=== PATIENT | female | born 1995 | race Caucasian/White ===

== ENCOUNTER 2020-06-01 10:57 | Outpatient (REF) | payer MEDICAID, SELFPAY ==
[2020-06-01 13:56] LABS: Syphilis Screen Nonreactive (Nonreactive)
[2020-06-02 12:01] LABS: BV Int Neg Control Negative (Negative); BV Int Pos Control Positive (Positive)
[2020-06-03 03:51] LABS: C. trachomatis RNA TMA NOT DETECTED (NOT DETECTED); N. gonorrhoeae RNA TMA NOT DETECTED (NOT DETECTED)
[2020-06-04 04:23] LABS: HBc Num1 0.06 S/CO (0.00-0.79); HIV AB/AG Nonreactive (Nonreactive); HIV Num 1 0.06 S/CO (0.00-0.99); Hepatitis B Core Antibody Nonreactive (Nonreactive)
[2020-06-04 04:27] LABS: ~HepC Num1 0.05 S/CO (0.00-0.79); ~Hepatitis C Antibody Nonreactive (Nonreactive)
== END 2020-06-01 10:58 | disposition home or self-care (01) ==
LOC: HO.LAB 10:57
PROVIDERS: Visit Provider Advanced Practice Midwife
DX: Z01.419 Encounter for gynecological examination (general) (routine) without abnormal findings (principal); Z20.2 Contact with and (suspected) exposure to infections with a predominantly sexual mode of transmission; E66.9 Obesity, unspecified; J45.909 Unspecified asthma, uncomplicated; F17.210 Nicotine dependence, cigarettes, uncomplicated; Z91.013 Allergy to seafood; Z86.19 Personal history of other infectious and parasitic diseases
CPT/HCPCS: 36415; 86704; 86780; 86803; 87389; 87480; 87491; 87510; 87591; 87660

== ENCOUNTER → 2020-10-09 15:40 | Outpatient (BNVA) | payer MEDICAID, SELFPAY | PROVIDERS: Visit Provider Advanced Practice Midwife ==

== ENCOUNTER → 2020-10-23 15:54 | Outpatient (BNVA) | payer MEDICAID, SELFPAY | PROVIDERS: Visit Provider Advanced Practice Midwife ==

== ENCOUNTER 2021-04-18 14:01 | Outpatient (REF) | payer MEDICAID, SELFPAY ==
[2021-04-19 08:57] LABS: BV Int Neg Control Negative (Negative); BV Int Pos Control Positive (Positive)
[2021-04-19 10:53] LABS: CT PCR NOT DETECTED (Not Detect.); NG PCR NOT DETECTED (Not Detect.)
== END 2021-04-18 14:02 | disposition home or self-care (01) ==
LOC: HO.LAB 14:01
PROVIDERS: Visit Provider Advanced Practice Midwife
DX: Z01.419 Encounter for gynecological examination (general) (routine) without abnormal findings (principal); R10.2 Pelvic and perineal pain; E66.01 Morbid (severe) obesity due to excess calories; F17.210 Nicotine dependence, cigarettes, uncomplicated; Z87.42 Personal history of other diseases of the female genital tract; Z98.891 History of uterine scar from previous surgery; Z20.2 Contact with and (suspected) exposure to infections with a predominantly sexual mode of transmission; Z79.899 Other long term (current) drug therapy
CPT/HCPCS: 81025; 87086; 87480; 87491; 87510; 87591; 87660; 99212

== ENCOUNTER 2021-05-09 10:46 | Outpatient (REF) | payer MEDICAID, SELFPAY ==
--- NOTE | ~2021-05-09 | US_ITS ---
EXAMINATION: US PELVIC AND TRANSVAGINAL CLINICAL INFORMATION: Pelvic and perineal pain. COMPARISON: None TECHNIQUE: Ultrasound of the pelvis is performed using both transabdominal and transvaginal transducers along with Doppler. Transvaginal imaging is performed due to inadequate visualization transabdominally. FINDINGS: Uterus: The uterus is 8.7 x 3.7 x 4.8 cm for a volume of 83.1 mL. The double wall endometrial thickness is 0.6 mm. The uterus is smooth in contour and has normal myometrial echogenicity. No visible fibroid. Adnexa: Both ovaries are visualized. There is normal color flow to the adnexa. There is no ovarian torsion. There is no pelvic ascites or fluid collection. Right ovary measures 3.8 x 2.4 x 2.6 cm. Multiple normal follicles are seen, the largest 1 cm. Left ovary measures 3.5 x 3.2 x 2.2 cm. Multiple small follicles are noted. US/US pelvic and transvaginal IMPRESSION: Normal pelvic ultrasound.
== END 2021-05-09 10:47 | disposition home or self-care (01) ==
LOC: HO.US 10:46
PROVIDERS: Visit Provider Advanced Practice Midwife
DX: R10.2 Pelvic and perineal pain (principal)
CPT/HCPCS: 76830; 76856

== ENCOUNTER → 2021-05-10 15:00 | Outpatient (BNVA) | payer MEDICAID, SELFPAY | PROVIDERS: Visit Provider Advanced Practice Midwife ==

== ENCOUNTER 2021-06-07 09:26 | Outpatient (REF) | payer MEDICAID, SELFPAY ==
[2021-06-08 13:08] LABS: BV Int Neg Control Negative (Negative); BV Int Pos Control Positive (Positive)
[2021-06-08 14:30] LABS: CT PCR NOT DETECTED (Not Detect.); NG PCR NOT DETECTED (Not Detect.)
== END 2021-06-07 09:27 | disposition home or self-care (01) ==
LOC: HO.LAB 09:26
PROVIDERS: PCP Family Medicine; Visit Provider Advanced Practice Midwife
DX: Z01.419 Encounter for gynecological examination (general) (routine) without abnormal findings (principal); R10.32 Left lower quadrant pain; R10.2 Pelvic and perineal pain; Z86.19 Personal history of other infectious and parasitic diseases; Z20.2 Contact with and (suspected) exposure to infections with a predominantly sexual mode of transmission
CPT/HCPCS: 87480; 87491; 87510; 87591; 87660; 88142

== ENCOUNTER 2022-06-24 10:14 | Outpatient (REF) | payer MEDICAID, SELFPAY ==
[2022-06-24 17:42] LABS: CT PCR NOT DETECTED (Not Detect.); NG PCR NOT DETECTED (Not Detect.)
[2022-06-25 09:28] LABS: BV Int Neg Control Negative (Negative); BV Int Pos Control Positive (Positive)
== END 2022-06-24 10:15 | disposition home or self-care (01) ==
LOC: HO.LAB 10:14
PROVIDERS: PCP Family Medicine; Visit Provider Advanced Practice Midwife
DX: N89.8 Other specified noninflammatory disorders of vagina (principal); Z20.2 Contact with and (suspected) exposure to infections with a predominantly sexual mode of transmission
CPT/HCPCS: 0353U; 87480; 87510; 87660

== ENCOUNTER 2022-06-24 10:44 | Outpatient (REF) | payer MEDICAID, SELFPAY | END 2022-06-24 10:45 | disposition home or self-care (01) | LOC: HO.LNP 10:44 | PROVIDERS: Visit Provider Advanced Practice Midwife | DX: Z13.89 Encounter for screening for other disorder (principal) ==

== ENCOUNTER 2022-07-31 08:13 | Outpatient (REF) | payer OTHER, SELFPAY ==
[2022-08-01 10:48] LABS: BV Int Neg Control Negative (Negative); BV Int Pos Control Positive (Positive)
== END 2022-07-31 08:14 | disposition home or self-care (01) ==
LOC: HO.LAB 08:13
PROVIDERS: PCP Family Medicine; Visit Provider Advanced Practice Midwife
DX: N89.8 Other specified noninflammatory disorders of vagina (principal)
CPT/HCPCS: 87480; 87510; 87660; 99212

== ENCOUNTER 2022-09-18 08:27 | Outpatient (REF) | payer MEDICAID, SELFPAY ==
[2022-09-19 13:44] LABS: BV Int Neg Control Negative (Negative)
[2022-09-19 13:45] LABS: BV Int Pos Control Positive (Positive)
== END 2022-09-18 08:28 | disposition home or self-care (01) ==
LOC: HO.LAB 08:27
PROVIDERS: PCP Family Medicine; Visit Provider Advanced Practice Midwife
DX: N89.8 Other specified noninflammatory disorders of vagina (principal)
CPT/HCPCS: 87480; 87510; 87660; 99212

== ENCOUNTER 2022-10-13 10:31 | Outpatient (REF) | payer MEDICAID, SELFPAY ==
--- NOTE | ~2022-10-13 | US_ITS ---
EXAMINATION: US OBSTETRICAL ULTRASOUND CLINICAL INFORMATION: Hemorrhage in early . LMP 09/03/2022. COMPARISON: 05/09/2021 LMP: 09/03/2022. Gestational age by maternal dates is 5 weeks 5 days. Estimated date of delivery by maternal dates is 06/10/2023. TECHNIQUE: Transabdominal and endovaginal imaging was performed. FINDINGS: There is a single intrauterine gestational sac with visible yolk sac, embryo/fetus, and cardiac activity. There is no significant subchorionic hemorrhage or hematoma. HR: 105 beats per minute. CRL (crown rump length): 0.16 cm. Could not be calculated. JANNY (estimated date of delivery): Could not be calculated. MATERNAL ADNEXA: The right maternal ovary measures 5.3 x 2.6 x 2.6 cm. Corpus luteal cyst measures 2.4 x 2.1 x 2.3 cm. The left maternal ovary measures 3.4 x 1.4 x 2.2 cm. There is no significant maternal adnexal mass. No maternal pelvic ascites. US/US OB pelvic and transvaginal IMPRESSION: Single viable intrauterine gestation. Continued sonographic surveillance is advised.
== END 2022-10-13 10:32 | disposition home or self-care (01) ==
LOC: HO.US 10:31
PROVIDERS: PCP Family Medicine; Visit Provider Obstetrics & Gynecology
DX: O20.9 Hemorrhage in early pregnancy, unspecified (principal)
CPT/HCPCS: 36415; 76801; 76817; 84702; 99212

== ENCOUNTER 2022-10-13 11:44 | Outpatient (AMB) | payer MEDICAID, SELFPAY ==
[2022-10-13 11:52] VITALS: BP 104/66; BMI 39.0
--- NOTE | 2022-10-13 11:52 | MHC.OFFVIS ---
Intake Vital Signs 10/13/22 11:52 Height 5 ft 3 in Weight 220 lb BMI 39.0 BP 104/66 Intake Visit Reasons: Vag Bleeding Sap Data Analyst Required: No Information Interpreted: non-clinical & clinical Feller Machine Operator: Feller Machine Operator Present (Belinda) Allergies shellfish derived [SHELLFISH DERIVED] Allergy (Unknown, Verified 10/13/22 11:53) ITCHING cats and dogs Allergy (Unknown, Uncoded 10/13/22 11:53) rash polypropylene suture Allergy (Unknown, Uncoded 10/13/22 11:53) Blister seasonal Allergy (Unknown, Uncoded 10/13/22 11:53) Itching SEASONAL ALLERGIES Allergy (Unknown, Uncoded 10/13/22 11:53) ITCHING shellfish Allergy (Unknown, Uncoded 10/13/22 11:53) rash Is last menstrual period known: Yes Last menstrual period: 09/02/22 Post menopausal: No HPI HPI Comments History of Present Illness Details Presenting at the 6 weeks of gestation by LMP 09/03/2022 complaining of vaginal spotting and cramping. HCG done today is still pending, blood type B positive. OB ultrasound showed the following: LMP: 09/03/2022. Gestational age by maternal dates is 5 weeks 5 days. Estimated date of delivery by maternal dates is 06/10/2023. TECHNIQUE: Transabdominal and endovaginal imaging was performed. ? FINDINGS: There is a single intrauterine gestational sac with visible yolk sac, embryo/fetus, and cardiac activity.? There is no significant subchorionic hemorrhage or hematoma. HR:? 105 beats per minute. CRL (crown rump length): ? 0.16 cm. Could not be calculated. JANNY (estimated date of delivery): Could not be calculated. MATERNAL ADNEXA: ? ? The right maternal ovary measures 5.3 x 2.6 x 2.6 cm.? Corpus luteal cyst measures 2.4 x 2.1 x 2.3 cm. The left maternal ovary measures 3.4 x 1.4 x 2.2 cm. There is no significant maternal adnexal mass.? No maternal pelvic ascites. [facility] Medical History Asthma Hx of herpes simplex type 2 infection Obesity (BMI 30-39.9) Surgical History Hx of section Hx of cholecystectomy Hx of tonsillectomy Family History Father Diabetes mellitus HTN (hypertension) CVD (cardiovascular disease) FH: mental illness Mother FH: mental illness Paternal Grandfather CVD (cardiovascular disease) Paternal Aunt Breast cancer Family/Other Breast cancer Social History Alcohol intake: current Alcohol intake frequency: holidays/special occasions only Patient Tobacco Use Status: Current everyday Tobacco user Cigarette Packs Per Day: 1 Cigarettes Per Day: 20 Years Smoked: 15 Sexual orientation: Straight/Heterosexual Gender identity: Female Female Reproductive History Menstrual Age of Menarche: 10 Duration of menses: 3-5 days Date of last menstrual period: 09/02/22 control method: none Date of last pap smear: 06/10/21 Review of Systems Const All systems reviewed & are unremarkable except as noted in HPI and below Physical Exam Vital Signs: Last Vital Signs BP 104/66 10/13/22 11:52 BMI result Body Mass Index 39.0 General: Yes no CVA tenderness External Female Exam: normal external appearance and normal appearance of the urethra Speculum Exam - Vagina: normal appearance of the vagina, normal palpation, no lesions and no masses Speculum Exam - Cervix: normal appearance of the cervix, normal palpation, no lesions, no masses and nontender Bimanual exam- vagina & uterus: normal bimanual exam, normal palpation, uterine size normal, normal palpation, uterine shape normal, No Cervical tenderness present and non-tender Bimanual Exam- Adnexa, other: normal adnexae Back/Spine/Pelvis Back: no CVA tenderness Assessment & Plan Assessment & Plan (1) First trimester bleeding: Code(s): O20.9 - Hemorrhage in early , unspecified Plan: GC and chlamydia taken. Discussed with the patient the finding on ultrasound showing a live intrauterine , CRL and gestational sacs are to to be measured. Repeat ultrasound in 2 weeks SAB warnings given to patient, she is to call or go to the emergency room in case of worsening /persistence of cramping and or bleeding. vitamin 1 tablet p.o. q.d. instructions given the patient to schedule a follow-up appointment 2 weeks. All questions answered, the patient verbalized understanding Orders: Orders US OB <= 14 weeks fetus Today O20.9 - Hemorrhage in early , unspecified Coding Level of Care Code Est Pt Level 3 (02814) Diagnoses First trimester bleeding O20.9
== END 2022-10-13 13:08 | disposition home or self-care (01) ==
LOC: HO.HWS 11:44
PROVIDERS: PCP Family Medicine; Visit Provider Obstetrics & Gynecology
DX: O20.9 Hemorrhage in early pregnancy, unspecified (principal)
CPT/HCPCS: 99213

== ENCOUNTER 2022-10-13 15:13 | Outpatient (REF) | payer MEDICAID, SELFPAY ==
[2022-10-13 18:25] LABS: CT PCR NOT DETECTED (Not Detect.); NG PCR NOT DETECTED (Not Detect.)
== END 2022-10-13 15:14 | disposition home or self-care (01) ==
LOC: HO.LNP 15:13
PROVIDERS: Visit Provider Obstetrics & Gynecology
DX: O20.9 Hemorrhage in early pregnancy, unspecified (principal)
CPT/HCPCS: 0353U

== ENCOUNTER 2022-10-21 10:13 | Outpatient (AMB) | payer MEDICAID, SELFPAY ==
[2022-10-21 10:25] VITALS: BP 110/66; BMI 39.0
--- NOTE | 2022-10-21 10:25 | A.OFFVIS_ITS ---
Intake Vital Signs 10/21/22 10:25 Height 5 ft 3 in Weight 220 lb BMI 39.0 BP 110/66 Intake Visit Reasons: consult/30 Intake Note: LMP 09/03/22 EDC 06/10/23 6w6d The patient agreed to use of a durable medical equipment technician during this encounter. Scribed for ZAIN Dee by Gme Randle, durable medical equipment technician, on 10/21/2022 Allergies cats and dogs Allergy (Unknown, Uncoded 10/21/22 10:26) rash polypropylene suture Allergy (Unknown, Uncoded 10/21/22 10:26) Blister seasonal Allergy (Unknown, Uncoded 10/21/22 10:26) Itching shellfish Allergy (Unknown, Uncoded 10/21/22 10:26) rash Is last menstrual period known: Yes Last menstrual period: 09/03/22 HPI HPI Comments History of Present Illness Details She is here for consult. Had early first trimester bleeding and workup. She has a follow up US on 10/26/22. . C/S x 2, plans repeat C/S. This is my last baby . Reports VB a week ago, fatigue and nausea. Slight bleeding after transvaginal probe, no bleeding since. LMP 09/03/22 EDC 06/10/23 6w6d. Taking PNV, hydrating well and is able to eat. Declines B6 vitamins. . PFSH Medical History Asthma Hx of herpes simplex type 2 infection Obesity (BMI 30-39.9) Positive test Surgical History Hx of section Hx of cholecystectomy Hx of tonsillectomy Family History Father Diabetes mellitus HTN (hypertension) CVD (cardiovascular disease) FH: mental illness Mother FH: mental illness Paternal Grandfather CVD (cardiovascular disease) Paternal Aunt Breast cancer Family/Other Breast cancer Social History Alcohol intake: current Alcohol intake frequency: holidays/special occasions only Patient Tobacco Use Status: Current everyday Tobacco user Cigarette Packs Per Day: 1 Cigarettes Per Day: 20 Years Smoked: 15 Sexual orientation: Straight/Heterosexual Gender identity: Female Female Reproductive History Menstrual Age of Menarche: 10 Date of last menstrual period: 09/03/22 Total pregnancies: 5 Full term: 1 Premature: 2 Number of Living Children: 3 Ab spontaneous: 1 Multiple births: 1 Physical Exam Vital Signs: Last Vital Signs BP 110/66 10/21/22 10:25 BMI result Body Mass Index 39.0 Const General: cooperative, healthy appearing, comfortable, no acute distress, well developed, alert and awake Results Reviewed Results Reviewed: EXAMINATION:?05/09/21 US PELVIC AND TRANSVAGINAL CLINICAL INFORMATION:? Pelvic and perineal pain. COMPARISON: None TECHNIQUE: Ultrasound of the pelvis is performed using both transabdominal and transvaginal transducers along with Doppler. Transvaginal imaging is performed due to inadequate visualization transabdominally. FINDINGS: Uterus: The uterus is 8.7 x 3.7 x 4.8 cm for a volume of 83.1 mL. The double wall endometrial thickness is 0.6 mm.? The uterus is smooth in contour and has normal myometrial echogenicity. No visible fibroid. Adnexa: Both ovaries are visualized. There is normal color flow to the adnexa. There is no ovarian torsion. There is no pelvic ascites or fluid collection. Right ovary measures 3.8 x 2.4 x 2.6 cm. Multiple normal follicles are seen, the largest 1 cm. Left ovary measures 3.5 x 3.2 x 2.2 cm. Multiple small follicles are noted. US/US pelvic and transvaginal IMPRESSION: Normal pelvic ultrasound. Assessment & Plan Assessment & Plan (1) Positive test: Code(s): Z32.01 - Encounter for test, result positive Plan: Discussed: Options for prenantal care with birthing unit closure. Considering tubal ligation with Rc/s. Continue PNV. Advised to eat small frequent meals and stay cool and hydrated. Transition to [facility] for care to establish care to plan for Rc/s. Reviewed when to call for any VB. Call the service here for any emergencies/deliveries to be directed to [facility]. Keep follow up US. Call if needing Rx for B6 in the future. All of her questions and concerns were addressed to the best of my ability and shared decision making. She is agreeable to plan of care. (2) First trimester bleeding: Code(s): O20.9 - Hemorrhage in early , unspecified Coding Level of Care Code Est Pt Level 3 (69393) Diagnoses Positive test Z32.01 First trimester bleeding O20.9
== END 2022-10-21 10:44 | disposition home or self-care (01) ==
LOC: HO.HWS 10:13
PROVIDERS: PCP Family Medicine; Visit Provider Advanced Practice Midwife
DX: Z32.01 Encounter for pregnancy test, result positive (principal); O20.9 Hemorrhage in early pregnancy, unspecified
CPT/HCPCS: 99213

== ENCOUNTER → 2022-10-21 10:13 | Outpatient (BNVA) | payer MEDICAID, SELFPAY | PROVIDERS: PCP Family Medicine; Visit Provider Advanced Practice Midwife | DX: O20.9 Hemorrhage in early pregnancy, unspecified (principal); Z3A.00 Weeks of gestation of pregnancy not specified | CPT/HCPCS: 99212 ==

== ENCOUNTER 2022-10-27 10:53 | Outpatient (REF) | payer MEDICAID, SELFPAY ==
--- NOTE | ~2022-10-27 | US_ITS ---
EXAMINATION: US OBSTETRICAL ULTRASOUND CLINICAL INFORMATION: Hemorrhage in early . COMPARISON: Pelvic ultrasound dated 10/13/2022. LMP: 09/03/2022. Gestational age by maternal dates is 7 weeks and 5 days. Estimated date of delivery by maternal dates is 06/10/2023. TECHNIQUE: Ultrasound of the maternal pelvis is performed using transabdominal and transvaginal transducers. Transvaginal imaging is performed due to inadequate visualization transabdominally. M-mode Doppler is also performed. FINDINGS: There is a single intrauterine gestational sac with visible yolk sac, embryo/fetus, and cardiac activity. There is no significant subchorionic hemorrhage or hematoma. HR: 151 beats per minute. CRL (crown rump length): 1.12 cm (7 weeks and 2 days +/- 4 days). JANNY (estimated date of delivery): 06/13/2023 +/- 4 days. MATERNAL ADNEXA: The right maternal ovary measures 4.4 x 2.7 x 3.5 cm. The right ovary contains a 2.5 cm corpus luteum cyst and a 1.5 cm benign, simple follicle. The left maternal ovary measures 3.5 x 2.0 x 2.1 cm. There is no significant maternal adnexal mass. No maternal pelvic ascites. US/US OB pelvic and transvaginal IMPRESSION: 1. Single intrauterine gestation with ultrasound gestational age of 7 weeks and 2 days +/- 4 days. 2. Estimated date of delivery is 06/13/2023 +/- 4 days. 3. No maternal adnexal mass or pelvic ascites. 4. No subchorionic hemorrhage is noted.
== END 2022-10-27 10:54 | disposition home or self-care (01) ==
LOC: HO.US 10:53
PROVIDERS: PCP Family Medicine; Visit Provider Obstetrics & Gynecology
DX: O20.9 Hemorrhage in early pregnancy, unspecified (principal)
CPT/HCPCS: 76801; 76817